=== PATIENT | male | born 1975 | race Caucasian/White ===

== ENCOUNTER 2021-10-05 13:44 | Emergency (ER) | payer OTHER ==
[~2021-10-05] VITALS: Ht 185.4 cm; Wt 112.7 kg
[2021-10-05 13:56] VITALS: BP 141/81
--- NOTE | 2021-10-05 14:03 | PHYS DOC ---
General Adult EDM: Chief Complaint: KNEE INJURY HPI: HPI: Patient is a 46 year old male who presents with right knee fluid buildup. He states the last couple weeks he has noticed some slight tenderness in the knee and then swelling. He states he went to his primary care doctor who told him to come to the emergency room to have the fluid aspirated off of his knee. Rates pain 2 out of 10. Denies any kind of injury that he can remember. He does work out and play sports a lot. Denies weakness in the extremity, inability to bear weight on the extremity, numbness or tingling, skin color change, fever. ([facility]) Review of Systems: Review of Systems: Constitutional: Denies fever or chills. [] Eyes: Denies change in visual acuity. [] HENT: Denies nasal congestion or sore throat. [] Respiratory: Denies cough or shortness of breath. [] Cardiovascular: Denies chest pain or edema. [] GI: Denies abdominal pain, nausea, vomiting, bloody stools or diarrhea. [] : Denies dysuria. [] Musculoskeletal: Denies back pain or joint pain. [] Integument: Denies rash. [] Neurologic: Denies headache, focal weakness or sensory changes. [] Endocrine: Denies polyuria or polydipsia. [] Lymphatic: Denies swollen glands. [] Psychiatric: Denies depression or anxiety. [] ([facility] [employer] [facility]) Heart Score: C/O Chest Pain: No ([facility]) Physical Exam: PE: Constitutional: Well developed, well nourished, no acute distress, non-toxic appearance. [] HENT: Normocephalic, atraumatic, bilateral external ears normal, oropharynx moist, no oral exudates, nose normal. [] Eyes: PERRLA, EOMI, conjunctiva normal, no discharge. [] Neck: Normal range of motion, no tenderness, supple, no stridor. [] Cardiovascular:Heart rate regular rhythm, no murmur [] Lungs & Thorax: Bilateral breath sounds clear to auscultation [] Abdomen: Bowel sounds normal, soft, no tenderness, no masses, no pulsatile masses. [] Skin: Warm, dry, no erythema, no rash. [] Back: No tenderness, no CVA tenderness. [] Extremities: No tenderness, no cyanosis, no clubbing, ROM intact, anterior patella 2+ edema. [] Neurologic: Alert and oriented X 3, normal motor function, normal sensory function, no focal deficits noted. [] Psychologic: Affect normal, judgement normal, mood normal. [] (WYATT CRENSHAW APRN) EKG: EKG: [] (WYATT CRENSHAW APRN) Radiology/Procedures: Radiology/Procedures: [][facility] [address] [place] [address] IMAGING REPORT Signed PATIENT: BALJEET WASSERMAN ACCOUNT: [id number] : 1975 LOCATION: ER AGE: 46 SEX: M EXAM STATUS: REG ER ORD. PHYSICIAN: WYATT CRENSHAW APRN REASON: swelling, tenderness PROCEDURE: KNEE RIGHT 4V Study: XR KNEE 4 VIEWS WITH PATELLA_RT Indication: Swelling. Tenderness. Comparison: None. Findings: Soft tissue prominence and reticulation of the subcutaneous fat at the anterior distal thigh extending down to the patella. No appreciable joint effusion. Maintained femorotibial compartment joint space height. Mild arthrosis at the patellofemoral compartment. No fracture, erosive change or periostitis. Impression: 1. No acute osseous abnormality. Mild arthrosis mainly at the patellofemoral compartment. 2. Soft tissue prominence and reticulation of the subcutaneous fat distal anterior thigh down to the patella. Correlate with direct inspection and patient history to help differentiate between bland edema, cellulitis or contusion. Electronically signed by: ANDREW MARTIN MD (10/05/2021 2:53 PM) [id number] DICTATED and SIGNED BY: ANDREW MARTIN MD DATE: 10/05/21 [id number] (WYATT CRENSHAW APRN) Course & Med Decision Making: Course & Med Decision Making Pertinent Labs and Imaging studies reviewed. (See chart for details) See HPI. Alert and oriented x4. Ambulatory with a steady gait. Skin pink warm and dry. Cap refill less than 2 seconds. Right anterior patella swelling 2+ without redness or tenderness with palpation. He can bear weight on the extremity. No focal weakness. No laxity formerly in the knee joint. Pedal pulse strong present. Dr. Mckeon is going to drain fluid off the knee. Patient will be given follow- up instructions to go to an orthopedic. Patient will be given a Medrol Dosepak and to take NSAIDs. [] (WYATT CRENSHAW APRN) Course & Med Decision Making Procedure note for aspiration of the prepatellar bursa right knee: Patient was sterilely prepped and a 20-gauge needle was used to withdraw approximately 4 cc of blood from the prepatellar bursa on the right. Care was taken not to enter the joint space. Patient tolerated this well without complication. (BARRINGTON MCKEON MD) Dragon Disclaimer: Dragon Disclaimer: This electronic medical record was generated, in whole or in part, using a voice recognition dictation system. (WYATT CRENSHAW APRN) Departure Departure Impression: Primary Impression: Bursitis Qualified Codes: M70.51 - Other bursitis of knee, right knee Disposition: HOME / SELF CARE / HOMELESS Condition: STABLE Referrals: NO PCP (PCP) BALJEET TRUJILLO MD Patient Instructions: Prepatellar Bursitis with [facility] Additional Instructions: Rest the extremity for the next couple of weeks. Take medication as prescribed and with food. Follow-up with orthopedic soon as possible. The joint becomes red and very tender you need return to the emergency room. Scripts Methylprednisolone (MEDROL) 4 Mg Tab.ds.pk 1 PKG PO UD, #1 PKG Prov: WYATT CRENSHAW APRN 10/05/21 Ibuprofen (IBUPROFEN) 600 Mg Tablet 600 MG PO PRN Q6HRS PRN for INFLAMMATION, #30 TAB Prov: WYATT CRENSHAW APRN 10/05/21 WYATT CRENSHAW APRN Oct 05, 2021 14:03 BARRINGTON MCKEON MD Oct 05, 2021 15:01
--- NOTE | 2021-10-05 14:55 | RAD ---
Study: XR KNEE 4 VIEWS WITH PATELLA_RT Indication: Swelling. Tenderness. Comparison: None. Findings: Soft tissue prominence and reticulation of the subcutaneous fat at the anterior distal thigh extendin g down to the patella. No appreciable joint effusion. Maintained femorotibial compartment joint space height. Mild arthrosis at the patellofemoral compartment. No fracture, erosive change or periostitis . Impression: 1. No acute osseous abnormality. Mild arthrosis mainly at the patellofemoral compartment. 2. Soft tissue prominence and reticulation of the subcutaneous fat distal anterior thigh down to the patella. Correlate with direct inspection and patient history to help differentiate between bland radha ma, cellulitis or contusion. Electronically signed by: ANDREW MARTIN MD (10/05/2021 2:53 PM) [id number]
[2021-10-05] MEDS ORDERED: IBUP-1007 PO (14:57)
[2021-10-05] MEDS ORDERED: METH4TAB2 PO (14:57)
== END 2021-10-05 15:08 | disposition home or self-care (01) ==
LOC: ER 13:44
DX: M70.51 Other bursitis of knee, right knee (principal)
CPT/HCPCS: 73564; 99283